=== PATIENT | male | born 2000 | race Hispanic/Latino ===

== ENCOUNTER 2022-05-02 22:23 | Emergency (ER) | payer OTHER ==
[~2022-05-02] VITALS: Ht 165.1 cm; Wt 66.2 kg
[2022-05-02 23:17] LABS: APPEARANCE,URINE CLEAR (CLEAR); BILIRUBIN,URINE NEGATIVE (NEGATIVE); COLOR,URINE YELLOW (YELLOW); GLUCOSE, URINE (UA) NEGATIVE (NEGATIVE); KETONES,URINE NEGATIVE (NEGATIVE); LEUKOCYTE ESTERASE ,URINE NEGATIVE Leu/uL (NEGATIVE); NITRATE,URINE NEGATIVE (NEGATIVE); OCCULT BLOOD,URINE NEGATIVE (NEGATIVE); PROTEIN,URINE 50 mg/dL (NEGATIVE)
[2022-05-02 23:24] LABS: AMPHET/METH SCREEN,URINE NEGATIVE (NEGATIVE); BARBITURATE SCREEN, URINE NEGATIVE (NEGATIVE); BENZODIAZEPINES SCREEN,URINE NEGATIVE (NEGATIVE); CANNABINOID SCREEN,URINE POSITIVE (NEGATIVE); COCAINE SCREEN,URINE POSITIVE (NEGATIVE); OPIATE SCREEN,URINE NEGATIVE (NEGATIVE); PHENCYCLIDINE SCREEN,URINE NEGATIVE (NEGATIVE)
[2022-05-02 23:28] LABS: BASOPHILS % (AUTO) 0.5 % (0.0-5.0); EOSINOPHILS % (AUTO) 3.4 % (0.0-8.0); HEMATOCRIT 37.2 % (42-54); LYMPHOCYTES % (AUTO) 36.3 % (21.0-51.0); MEAN CORPUSCULAR HEMOGLOBIN 29.1 pg (27.0-33.0); MEAN CORPUSCULAR HGB CONC 33.1 g/dL (32.0-36.0); MEAN CORPUSCULAR VOLUME 88.2 fL (79-99); MONOCYTES % (AUTO) 10.7 % (3.0-13.0); NEUTROPHILS % (AUTO) 48.8 % (40.0-77.0); PLATELET COUNT (AUTO) 261 K/uL (130-400); RED BLOOD CELL COUNT(AUTO) 4.22 MIL/uL (4.50-6.20); RED CELL DISTRIBUTION WIDTH 13.9 % (11.0-15.5); WHITE BLOOD COUNT (AUTO) 7.4 K/uL (4.8-10.8)
[2022-05-02 23:35] LABS: MUCUS,URINE RARE LPF (None Seen)
[2022-05-02 23:37] LABS: CREATININE 0.9 mg/dL (0.5-1.5); POTASSIUM 3.4 mmol/L (3.5-5.1)
[2022-05-02 23:41] LABS: ALBUMIN 3.6 g/dL (3.5-5.0); TOTAL PROTEIN, SERUM 7.3 g/dL (6.0-8.3)
[2022-05-02 23:42] VITALS: BP 122/72
[2022-05-03 00:07] LABS: B-TYPE NATRIURETIC PEPTIDE 6 pg/mL (0-100)
== END 2022-05-03 00:13 | disposition home or self-care (01) ==
LOC: EDH 22:23
DX: R07.89 Other chest pain (principal)
CPT/HCPCS: 36415; 71045; 80053; 80305; 81001; 82550; 83880; 84484; 85025; 93005

== ENCOUNTER 2024-05-18 19:59 | Emergency (ER) | payer SELFPAY ==
[~2024-05-18] VITALS: Ht 165.1 cm; Wt 70.8 kg
[2024-05-18] MEDS ORDERED: CLIN-141 PO (20:10)
--- NOTE | 2024-05-18 20:11 | ERN ---
ED Note History of Present Illness Stated Complaint: PAIN IN GENITAL AREA Time Seen by MD: 20:01 Dictation: Patient is here with complaints of swelling and a pustule on top of a fabien that he put in his penis while he was in care home last year. He states that was common in care home and he did it himself last year. Said yesterday it started some swelling to the top of the area and he squeezed it this afternoon and it got red. No fever no chills no nausea vomiting. States he is still voiding without difficulty. Primary care doctor Allergies: Coded Allergies: No Known Allergies (Unverified Allergy, Unknown, 05/02/22) Past Medical History Past Medical History: No Pertinent History Surgical History: None RN Note Reviewed/Agreed w/PFSH: Yes Review of System Dictation CONSTITUTIONAL: Negative except for HPI HEAD/FACE: Negative except for HPI EENT: Negative except for HPI RESPIRATORY: Negative except for HPI GASTROINTESTINAL/ABDOMINAL: Negative except for HPI GENITOURINARY: Negative except for HPI dorsal genital lesion with foreign body MUSCULOSKELETAL: Negative except for HPI INTEGUMENTARY: Negative except for HPI NEUROLOGICAL/PSYCH: Negative except for HPI HEMATOLOGIC/LYMPHATIC: Negative except for HPI All Systems Negative, Except as noted above. 13 point review of systems assessed and all negative except for above. Physical Exam Dictation Vital Signs reviewed patient's in room with the exam General Appearance: Alert, oriented x 3, no acute distress, well developed, nourished. Head and Face: non-traumatic. Eyes: PERRL, pink conjunctivas, eyelid no trauma, anterior chamber with arcus senilis. Ears: Pinnas intact and no signs of trauma or erythema ear canals clear and no discharge TM no erythema Nose: No discharge, no bleeding. Oropharynx: Mouth normal, tongue pink, pharynx clear,no erythema, tonsils no exudates, no abscesses noted, mucous membrane moist Neck: Supple, non-tender, no thyromegaly, no masses, no JVD, no bruits Breast:Deferred Chest:No tenderness, no crepitus, no paradoxical movement, no retractions Lungs:Clear, well-ventilated, symmetric, no rales, no wheezing, no rhonchi, no stridor, good breath sounds bilaterally Heart: Regular rate, regular rhythm, no murmur, no gallops Vascular: no peripheral edema, Abdomen: Soft, positive bowel sounds, nondistended, no guarding, nontender, no rebound, no masses no hepatomegaly, no splenomegaly, no Donovan's s ign, no hernias. Rectal: Deferred Genital: Dorsal penis with to foreign objects under foreskin. Most distal foreign object with erythema and open skin above it. No drainage Neurological: Normal speech, motor function intact, sensory function intact Musculoskeletal: Neck nontender, full range of motion, back nontender, full range of motion, Extremities: nontender, full range of motion Skin: Color pink, dry, no turgor, no rash, no lacerations, no abrasions, no contusions. Lymphatic: Deferred Results (Laboratory/Radiology) Labs Reviewed?: Yes ED Course ED Course Orders Procedure Category Date Status Time Clindamycin 150mg Cap PHA 05/18/24 Verified (Cleocin 150mg Cap 20:30 2009/patient given strict instructions not to squeeze the lesion to his penis. He will be loaded with clindamycin, referred to in 1-2 days Medical Decision Making MDM Medical decision-making based on empiric treatment for skin infection to penis. Patient in his given instructions not to squeeze lesion to his penis Take antibiotics as directed until gone Call urologist for an appointment tomorrow DX & DISP Disposition: Discharge Departure Impression: Primary Impression: Foreign body in skin of penis with infection Condition: Stable Scripts Clindamycin HCl (Clindamycin HCl) 300 Mg Capsule 1 CAP PO QID for 10 Days, #40 CAP 0 Refills Prov: UGO BREWER [employer] 05/18/24 Additional Instructions: Follow-up with primary care provider in 1 to 2 days. Take medications as directed here in the emergency room. Okay to continue home medications unless otherwise discussed during your visit in the emergency room today. Return to your nearest emergency room if symptoms worsen or if there is no improvement. Call 911 if you need immediate assistance. Take Tylenol or Motrin [id number] as needed and if no contraindications are present. Increase oral hydration. A wound culture or urine culture was ordered here in the emergency room department please follow-up with primary care provider and advise them to get repeat ports from our facility. If you had any Morales wrap/splints that were applied here, please do not remove them until you see your primary care or specialty. Take antibiotics as directed until GONE. DO NOT SQUEEZE THE WOUND TO YOUR PENIS. CALL UROLOGIST FOR APPOINTMENT TOMORROW WITHOUT FAIL Referrals: NONE (PCP) HAYLEY LIN MD Time of Disposition: 20:09 I have reviewed the case, and I agree with, Diagnosis and Plan UGO BREWER NP May 18, 2024 20:11
[2024-05-18 20:28] VITALS: BP 135/80; PULSE 60; RESP 16; TEMP 98.3; O2SAT 99
[2024-05-18] MEDS: CLINDAMYCIN 150 MG CAP PO ONE (20:33)
== END 2024-05-18 20:40 | disposition home or self-care (01) ==
LOC: EDH 19:59
DX: T19.4XXA Foreign body in penis, initial encounter (principal); W45.8XXA Other foreign body or object entering through skin, initial encounter; Y93.89 Activity, other specified; Y92.89 Other specified places as the place of occurrence of the external cause; Y99.8 Other external cause status
CPT/HCPCS: 99283

== ENCOUNTER 2024-05-19 20:04 | Emergency (ER) | payer SELFPAY ==
[~2024-05-19] VITALS: Ht 165.1 cm; Wt 70.3 kg
[~2024-05-19 20:04] MED LIST: CLIN-141 PO
--- NOTE | 2024-05-19 20:50 | ERN ---
General Chief Complaint: Wound Check Stated Complaint: WOUND TO GENNITAL Time Seen by MD: 20:09 Source: patient History of Present Illness Initial Comments Patient is a 24-year-old male coming in to be evaluated for a wound lesion. Patient states that he was some foreign bodies embedded into the dorsum of his penis which he got when he was in group home. He states that the imbedded body has began to take him to the point where there is a mild bleed where the foreign body has been pushing out. No fever or chills patient was currently on antibiotics Allergies: Coded Allergies: No Known Allergies (Unverified Allergy, Unknown, 05/02/22) Home Meds Active Scripts Clindamycin HCl (Clindamycin HCl) 300 Mg Capsule, 1 CAP PO QID for 10 Days, #40 CAP 0 Refills Prov:UGO BREWER NP 05/18/24 Past Medical History Past Medical History: No Pertinent History Past Surgical History: None ROS Dictation CONSTITUTIONAL: No chills, no fever, no weakness, no diaphoresis, no malaise. HEAD/FACE: No signs of trauma. EENT: No eye pain, no blurred vision, no tearing, no double vision, no ear pain, no ear discharge, no nose pain, no nasal congestion, no throat pain, no throat swelling, no mouth pain. RESPIRATORY: No cough, no orthopnea, no SOB, no stridor, no wheezing. CARDIOVASCULAR: No chest pain, no edema, no palpitations, no syncope. GASTROINTESTINAL/ABDOMINAL: No abdominal pain, no constipation, no diarrhea, no nausea, no vomiting. GENITOURINARY: No abnormal discharge, no dysuria, no frequent urination, no hematuria. complaints of pain in the genitals. MUSCULOSKELETAL: No back pain, no gout, no joint pain, no joint swelling, no muscle pain, no muscle stiffness, no neck pain. INTEGUMENTARY: No change in color, no change in hair/nails, no dryness, no lesion, no lumps, no rash. NEUROLOGICAL/PSYCH: No anxiety, not depressed, no emotional problem, no headache, no numbness, no pre-existing deficit, no history of seizures, no tremors, no weakness. HEMATOLOGIC/LYMPHATIC: Not anemic, no history of blood clots, no apparent bleeding, no bruising, glands not swollen. All Systems Negative, Except as Noted. Physical Exam Physical Exam Dictation VITAL SIGNS: Reviewed. GENERAL APPEARANCE: Alert, oriented x3, no acute distress, obese. HEAD AND FACE: Non-traumatic. EYES: PERRL, pink conjunctivas, eyelid no trauma, anterior chamber clear. EARS: Pinnas intact and no signs of trauma or erythema. Ear canals clear and no discharge. TMs no erythema. NOSE: No discharge, no bleeding. OROPHARYNX: Mouth normal, teeth no caries, tongue pink. Pharynx clear, no erythema. Tonsils no exudates, no abscesses noted. Mucous membrane moist. NECK: Supple, non-tender, no thyromegaly, no masses, no JVD, no bruits. BREAST: Deferred. CHEST: No tenderness, no crepitus, no paradoxical movement, no retractions. LUNGS: Clear, well-ventilated, symmetric, no rales, no wheezing, no rhonchi, no stridor, good breath sounds bilaterally. HEART: Regular rate, regular rhythm, no murmur, no gallops. VASCULAR: No peripheral edema. ABDOMEN: Soft, positive bowel sounds, nondistended, no guarding, nontender, no rebound, no masses no hepatomegaly, no splenomegaly, no Donovan's sign, no hernias. RECTAL: Deferred. GENITAL: Foreign body imbedded in the dorsum of the penis chaperoned by a michael Block NEUROLOGICAL: Normal speech, gross motor function intact, gross sensory function intact. MUSCULOSKELETAL: Neck nontender, full range of motion, back nontender, full range of motion. EXTREMITIES: Nontender, full range of motion. SKIN: Color pink, dry, no turgor, no rash, no lacerations, no abrasions, no contusions. LYMPHATICS: Deferred. Results Laboratory and Microbiology Labs Reviewed?: Yes MDM MDM: Differential diagnosis: Foreign body to the penis, wound Patient is a 24-year-old male coming in to be evaluated for a wound in his d orsum of the penis. He states that he had a foreign body imbedded in his penis while in group home. He states that it has been causing some irritation to the point where there is a lesion on the dorsum of his penis. Foreign body was removed as requested by patient due to the possibility of ongoing infection. Foreign body was removed without complications. Patient will be discharged in stable condition I did advised him appropriate follow up with PCP to continue monitoring wound. ED Course Vital Signs Date Time Temp Pulse Resp B/P (MAP) Pulse Ox O2 Delivery O2 Flow Rate FiO2 05/19/24 20:05 98.1 110 20 160/87 100 Room Air Procedure Dictation In a sterile environment after getting consent from patient a foreign body imbedded in the dorsal side of the penis was anesthetized using lidocaine 1% 5 mL were used. Good anesthesia achieved. Using the hemostats a lesion present in the dorsum was blunt dissected until foreign body was exposed. Using gentle pressure underneath foreign body was extracted. Chromic gut 4-0 sutures were used x4 simple interrupted good hemostasis obtained good approximation obtained. Patient tolerated procedure well. Wound was covered with topical antibiotics. DX & DISP Disposition: Discharge Departure Impression: Primary Impression: Foreign body in penis, subsequent encounter Condition: Stable Additional Instructions: FOLLOW-UP WITH PRIMARY CARE PROVIDER IN 1 TO 2 DAYS. TAKE MEDICATIONS DIRECTED HERE IN THE EMERGENCY ROOM. OKAY TO CONTINUE HOME MEDICATIONS UNLESS OTHERWISE DISCUSSED DURING YOUR VISIT IN THE EMERGENCY ROOM TODAY. RETURN TO YOUR NEAREST EMERGENCY ROOM IF SYMPTOMS WORSEN OR IF THERE IS NO IMPROVEMENT. CALL 911 IF YOU NEED IMMEDIATE ASSISTANCE. TAKE TYLENOL [id number] NEEDED AND IF NO CONTRAINDICATIONS ARE PRESENT. INCREASE ORAL HYDRATION. A WOUND CULTURE OR URINE CULTURE WAS ORDERED HERE IN THE EMERGENCY ROOM DEPARTMENT PLEASE FOLLOW-UP WITH PRIMARY CARE PROVIDER AND ADVISE THEM TO GET REPEAT PORTS FROM OUR FACILITY. IF YOU HAD ANY GABBY WRAP/SPLINTS THAT WERE APPLIED HERE, PLEASE DO NOT REMOVE THEM UNTIL YOU SEE YOUR PRIMARY CARE OR SPECIALTY. Referrals: Referrals: SELF,REFERRAL (PCP) HAYLEY LIN MD, LUIS A MD Time of Disposition: 20:50 JANINE MARIA MD May 19, 2024 20:50
[2024-05-19 21:00] VITALS: BP 151/83; PULSE 100; RESP 20; TEMP 98.1; O2SAT 100
[2024-05-19] MEDS: BACITRACIN 1 EACH PACKET TP ONE (21:03)
== END 2024-05-19 21:06 | disposition home or self-care (01) ==
LOC: EDH 20:04
DX: T19.4XXA Foreign body in penis, initial encounter (principal); W45.8XXA Other foreign body or object entering through skin, initial encounter; Y93.89 Activity, other specified; Y92.89 Other specified places as the place of occurrence of the external cause; Y99.8 Other external cause status
CPT/HCPCS: 10120; 12020; 99285